=== PATIENT | male | born 1955 | race American Indian/Alaskan Native ===

== ENCOUNTER 2018-01-14 07:19 | Day surgery (SDC) | payer BC ==
[~2018-01-14 07:19] MED LIST: ANCEF/STERILE WATER 2 GM/20 ML IV NR; LACTATED RINGERS 1,000 ML IV SCH; VERSED IV NR
[2018-01-14] MEDS ORDERED: DILAUDID IV PRN (08:28)
--- NOTE | 2018-01-14 08:28 | Anesthesia Consultation ---
Anesthesia Consult and Med Hx Date of service: 01/14/18 - Airway Anesthetic Teeth Evaluation: Partials (facial hair) ROM Head & Neck: Adequate Mental/Hyoid Distance: Adequate Mallampati Class: Class III Intubation Access Assessment: Probably Good - Pulmonary Exam CTA: Yes - Cardiac Exam Cardiac Exam: RRR - Pre-Operative Health Status ASA Pre-Surgery Classification: ASA3 Proposed Anesthetic Plan: General - Pulmonary Hx Smoking: Yes (OCC CIGAR , NOT DAILY) Hx Asthma: Yes ( YOUNG ADULT-RESOLVED NOW) Hx Sleep Apnea: Yes (DX SLEEP APNEA , NO CPAP) - Cardiovascular System Hx Hypertension: Yes (X 10 YRS) - Endocrine Hx Hypothyroidism: Yes (ON DAILY MEDS) - Other Systems Hx Cancer: No Hx Obesity: Yes
--- NOTE | 2018-01-14 08:28 | Anesthesia Day of Surgery ---
Anesthesia Day of Surgery - Day of Surgery Patient Examined: Yes Patient H&P Reviewed: Yes Patient is NPO: Yes
[2018-01-14] MEDS ORDERED: PEPCID IV NR (09:00)
[2018-01-14] MEDS ORDERED: DIPRIVAN 10 MG/ML IV ONE (09:15)
[2018-01-14] MEDS ORDERED: NACL 0.9% IR ONE (09:28)
[2018-01-14] MEDS ORDERED: XYLOCAINE MPF 2% ONE (09:57)
[2018-01-14] MEDS ORDERED: NACL 0.9% 1000 ML 1,000 ML ONE (09:58)
[2018-01-14] MEDS ORDERED: DILAUDID ONE (09:58)
[2018-01-14] MEDS ORDERED: ZOFRAN ONE (09:59)
--- NOTE | 2018-01-14 10:34 | Short Stay Summary ---
Short Stay Documentation Date of service: 01/14/18 - History H&P: obtained from office - Allergies and Medications Current Medications: Allergies iodine Allergy (Verified 01/07/18 17:48) Anaphylaxis shellfish derived Allergy (Verified 01/07/18 17:48) Anaphylaxis Home Medications Medication Instructions Recorded Confirmed Last Taken Type Amlodipine Bes/Olmesartan Med 1 each PO DAILY 01/07/18 01/07/18 Unknown History [Macario 10-40 mg Tablet] Aspirin [Lo-Dose Aspirin EC] 81 mg PO DAILY 01/07/18 01/07/18 Unknown History Levothyroxine [Synthroid] 125 mcg PO QAM 01/07/18 01/07/18 Unknown History Pantoprazole [Protonix] 40 mg PO QDAY 01/07/18 01/07/18 Unknown History Simvastatin [Zocor TAB] 40 mg PO QHS 01/07/18 01/07/18 Unknown History Triamter/Hctz 37.5-25 mg 1 tab PO DAILY 01/07/18 01/07/18 Unknown History [Maxzide-25] Active Medications Cefazolin Sodium (Ancef/Sterile Water 2 Gm/20 Ml) 2 gm IV PREOP NR Stop: 01/14/18 23:59 Famotidine (Pepcid) 20 mg IV PREOP NR Stop: 01/14/18 13:00 Last Admin: 01/14/18 09:07 Dose: 20 mg Hydromorphone HCl (Dilaudid) 0.5 mg IV Q10MIN PRN PRN Reason: Pain , Severe (7-10) Stop: 01/14/18 15:00 Lactated Ringer's (Lactated Ringers) 1,000 mls @ 100 mls/hr IV DIRECT PIETER Last Admin: 01/14/18 08:45 Dose: 100 mls/hr Midazolam HCl (Versed) 2 mg IV PREOP NR Stop: 01/14/18 23:59 Last Admin: 01/14/18 09:06 Dose: 2 mg - Brief post op/procedure progress note Date of procedure: 01/14/18 Pre-op diagnosis: rt hydrocelectomy, redundant scrotum Post-op diagnosis: same Procedure: rt hydrocelectomy, rt scrotaplasty, drain Anesthesia: GETA Surgeon: MACIEJ GREENFIELD Estimated blood loss: minimal Pathology: list (sac, skin) Specimen disposition: to lab Condition: stable - Hospital course Hospital course: norco on chart - Disposition Condition at discharge: Stable Disposition: DC-01 TO HOME OR SELFCARE Short Stay Discharge Plan Follow up with: ALEJANDRO ALLEN MD [Primary Care Provider] - 7 Days
[2018-01-14] MEDS ORDERED: NORCO 5/325 PO PRN (11:29)
[2018-01-14] MEDS ORDERED: NORCO 5/325 ONE (11:36)
--- NOTE | 2018-01-14 11:49 | Operative Report ---
PREOPERATIVE DIAGNOSIS: Right hydrocele, redundant scrotal skin. POSTOPERATIVE DIAGNOSIS: Right hydrocele, redundant scrotal skin. PROCEDURE: Right hydrocelectomy, right scrotoplasty, Hitchcock drain. SURGEON: Chidi Mcconnell MD ANESTHESIA: General. ESTIMATED BLOOD LOSS: Minimal. FLUIDS: Crystalloid. COMPLICATIONS: No complications. INDICATIONS: This 62-year-old gentleman seen in the office with a large right hydrocele approximately softball in size. Ultrasound revealed no intratesticular lesion. He was actually seen several years ago; however, it increased in size and he presents now for surgical intervention. DESCRIPTION OF PROCEDURE: The patient was taken to the operative suite, placed in supine position. After adequate general anesthesia, he is prepped and draped in a sterile fashion. Looking at the size of the hydrocele and to improve his cosmetic result, large wedge incision scrotal skin was made, sent for routine pathologic evaluation. Dartos layer was opened, tunica vaginalis could be appreciated. It was opened. Serosanguineous fluid was extracted, edematous hydrocele sac was excised and sent for routine pathologic evaluation. Whipstitch closure of the remnant, tunica vaginalis was closed with a 2-0 chromic in a running fashion. The testicle appeared healthy in nature. The patient had a small cystic mass on the left side, an 18-gauge needle used to aspirate, no fluid could be appreciated and it appeared just to be an epididymal cyst. A half inch Lee drain was brought through a separate stab incision on the right side tied under the skin with 2-0 chromic and interrupted fashion. The testicle was placed in the right hemiscrotum. Dartos layer was closed with 2-0 chromic in a running fashion. Skin was closed with 3-0 chromic in interrupted fashion. Fluffs and scrotal support was placed. The patient tolerated the procedure well and was extubated and taken to recovery room. He will go home on [place] and follow up in the office. JOB# [id number] Roger/RIO
[2018-01-14 12:23] VITALS: BP 119/78
--- NOTE | 2018-01-14 14:14 | Post Anesthesia Evaluation ---
- Post Anesthesia Evaluation Patient Participated: Yes Airway Patent: Yes Stable Respiratory Function: Yes Nausea/Vomiting: No Temp > 96.8F: Yes Pain Manageable: Yes Adequeate Hydration: Yes Anesthesia Complications: No
== END 2018-01-14 13:04 | disposition home or self-care (01) ==
LOC: OR 07:19
PROVIDERS: ATTEND Urology
DX: N43.2 Other hydrocele (principal); I10 Essential (primary) hypertension; J45.909 Unspecified asthma, uncomplicated; E03.9 Hypothyroidism, unspecified; E66.9 Obesity, unspecified; Z68.41 Body mass index [BMI] 40.0-44.9, adult; Z91.041 Radiographic dye allergy status; Z79.899 Other long term (current) drug therapy; F17.290 Nicotine dependence, other tobacco product, uncomplicated
CPT/HCPCS: 36415; 55040; 55175; 84132; 88302; 88305; J0690; J1170; J2250; J2405; J2704; J7030; J7120